=== PATIENT | male | born 1970 | race Caucasian/White ===

== ENCOUNTER → 2017-10-06 | Day surgery (SDC) | payer OTHER, MEDICARE ==
[~2017-10-06] VITALS: Ht 175.3 cm; Wt 160.6 kg
[~2017-10-06] MED LIST: ACETAMINOPHEN500 M4 PO; ALEVE220 M1 PO; ALEVE220 M2 PO; AMOX-CLAV 875-1 EACH PO; BYETTA10 MCG/0.0 SC; DAILY MULTIPLE1 EACH PO; DAKIN'S473 M1 TOP; HUMULIN R500 UNIT/2 SC; MEROPENEM1 G1 IV; METFORMIN HCL750 M1 PO; PRAVASTATIN SOD40 M2 PO; VITAMIN D2000 UNI1 PO
--- NOTE | 2017-10-06 11:04 | Operative Report ---
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 I discussed with the patient opening the wound making it larger removing any unhealthy nonviable tissue and sampling the bone if it should be questionable. He signed informed consent. He was taken to the operating room. He was kept on the stretcher and sedated. He was turned into the right side down position and the buttock was prepped and draped in usual sterile fashion. Examination of the fibrotic 1-1/2-2 cm track showed a large space at the depth of the wound and questionable cortical irregularities. The wound was opened longitudinally in a vertical fashion and allowed at this point to examine the cavity. The rectum was covered with healthy granulation tissue verified by a rectal exam. There was some cortical irregularity towards the right side of the lower sacrum and this was biopsied for microscopic and pathologic analysis. It was debrided back to healthy solid bone after a few passes with the curettes. Other areas of the sacrum were covered well with granulation tissue and this was debrided as well to identify any irregularities. The entire cavity was curettaged. skin was removed at the surface. The wound was made hemostatic with electrocautery and a lighted retractor and Surgicel. It was packed with moistened gauze. Copies of the reports were sent to his treating physicians. Wound care will continue per previous physician wound care orders and there will be no changes based on today 's intervention. If patient need flaps reconstruction he would be best served at a tertiary facility.
== END ==
LOC: STS 07:00
DX: L89.159 Pressure ulcer of sacral region, unspecified stage (principal); G83.4 Cauda equina syndrome; E11.40 Type 2 diabetes mellitus with diabetic neuropathy, unspecified; Z79.84 Long term (current) use of oral hypoglycemic drugs
CPT/HCPCS: 87070; 87075; 87147; J2250